=== PATIENT | female | born 1975 | race Caucasian/White ===

== ENCOUNTER 2017-12-08 11:58 | Day surgery (SDC) | payer OTHER ==
[~2017-12-08] VITALS: Ht 157.5 cm; Wt 116.6 kg
[2017-12-08] MEDS ORDERED: ATEN50 PO (12:42)
[2017-12-08] MEDS ORDERED: MELA3 PO (12:42)
[2017-12-08] MEDS ORDERED: IBUP400 PO (12:43)
== END 2017-12-08 17:51 | disposition home or self-care (01) ==
LOC: ORSCSDS 11:58
PROVIDERS: Obstetrics & Gynecology
PROC: 0UT74ZZ Resection of Bilateral Fallopian Tubes, Percutaneous Endoscopic Approach (ICD-10-PCS; principal; 2017-12-08 13:15)
PROC: 0UDB8ZZ Extraction of Endometrium, Via Natural or Artificial Opening Endoscopic (ICD-10-PCS; principal; 2017-12-08 13:15)
PROC: 0U5B8ZZ Destruction of Endometrium, Via Natural or Artificial Opening Endoscopic (ICD-10-PCS; principal; 2017-12-08 13:15)
DX: N92.1 Excessive and frequent menstruation with irregular cycle (principal); Z30.2 Encounter for sterilization; D64.9 Anemia, unspecified; N94.6 Dysmenorrhea, unspecified; I10 Essential (primary) hypertension; E66.01 Morbid (severe) obesity due to excess calories; Z68.42 Body mass index [BMI] 45.0-49.9, adult
CPT/HCPCS: 88302; 88305; J0171; J0690; J1100; J1885; J2250; J2405; J2710; J2765; J3010; J7120

== ENCOUNTER → 2018-01-08 | Outpatient (CLI) | payer OTHER ==
[~2018-01-08] MED LIST: AMOCLA500 PO; ATEN50 PO; BENZ100A PO; IBUP400 PO; MELA3 PO; Norco 10-325 T1 EACH PO; Zofran Odt4 MG SL
[2018-01-08 14:54] LABS: BASOPHILS ABSOLUTE AUTO 0.05 K/mm3 (0.00-0.23); BASOPHILS PERCENT AUTO 0 % (0-2); EOSINOPHILS ABSOLUTE AUTO 0.01 K/mm3 (0.00-0.68); EOSINOPHILS PERCENT AUTO 0 % (0-6); Hematocrit 35.8 % (33.0-51.0); Hemoglobin 11.5 g/dL (11.5-16.0); IMMATURE GRAN ABSOLUTE AUTO 0.08 K/mm3 (0.00-0.10); IMMATURE GRAN PERCENT AUTO 1 % (0-1); LYMPHOCYTES ABSOLUTE AUTO 1.64 K/mm3 (0.84-5.20); LYMPHOCYTES PERCENT AUTO 10 % (21-46); MONOCYTES ABSOLUTE AUTO 0.51 K/mm3 (0.16-1.47); MONOCYTES PERCENT AUTO 3 % (4-13); Mean Corpuscular HGB 25.6 pg (26.0-34.0); Mean Corpuscular HGB Conc 32.1 g/dL (31.5-36.5); Mean Corpuscular Volume 80 fL (80-100); Mean Platelet Volume 9.5 fL (9.1-12.4); NEUTROPHILS ABSOLUTE AUTO 14.44 K/mm3 (1.96-9.15); NEUTROPHILS PERCENT AUTO 86 % (41-73); Platelet Count 386 K/mm3 (150-400); RDW Coefficient Variation 15.9 % (11.7-14.2); RDW Standard Deviation 45.5 fL (35.1-46.3); Red Blood Cell Count 4.49 M/mm3 (3.80-5.20); White Blood Cell Count 16.73 K/mm3 (4.00-11.30)
[2018-01-08 15:06] LABS: Alanine Aminotransfer (ALT/SGP 24 U/L (12-78); Albumin, Blood 3.3 g/dL (3.4-5.0); Albumin/Globulin Ratio 0.7 (0.8-1.8); Alk Phos 66 U/L (40-126); Anion Gap 10 mmol/L (6-16); Aspartate Aminotrans (AST/SGOT 15 U/L (12-37); Bilirubin, Total 0.2 mg/dL (0.1-1.0); Blood Urea Nitrogen 15 mg/dL (8-24); Bun/Creatinine Ratio 17.9 (12.0-20.0); CO2, Blood 25 mmol/L (21-32); Calcium, Blood 8.8 mg/dL (8.5-10.1); Chloride, Blood 102 mmol/L (98-108); Creatinine, Blood 0.84 mg/dL (0.40-1.00); Globulin, Blood 4.6 g/dL (2.2-4.0); Glomerular Filtration Rate >60 (60-); Glucose, Blood 141 mg/dL (70-99); Sodium, Blood 137 mmol/L (136-145); Total Protein, Blood 7.9 g/dL (6.4-8.2)
== END ==
LOC: LAB SHORT 14:49 → LAB EV 14:49
PROVIDERS: Physician Assistant
DX: R10.13 Epigastric pain (principal)
CPT/HCPCS: 80053; 83690; 85025

== ENCOUNTER 2018-01-09 04:02 | Emergency (ER) | payer OTHER ==
[~2018-01-09] VITALS: Ht 157.5 cm; Wt 113.4 kg
[~2018-01-09 04:02] MED LIST changes: -AMOCLA500 PO; -BENZ100A PO; -Norco 10-325 T1 EACH PO; -Zofran Odt4 MG SL
[2018-01-09] MEDS ORDERED: AMOCLA500 PO (04:16)
[2018-01-09] MEDS ORDERED: BENZ100A PO (04:17)
[2018-01-09 04:20] LABS: BASOPHILS ABSOLUTE AUTO 0.03 K/mm3 (0.00-0.23); BASOPHILS PERCENT AUTO 0 % (0-2); EOSINOPHILS PERCENT AUTO 0 % (0-6); Hematocrit 34.5 % (33.0-51.0); Hemoglobin 10.9 g/dL (11.5-16.0); IMMATURE GRAN ABSOLUTE AUTO 0.08 K/mm3 (0.00-0.10); IMMATURE GRAN PERCENT AUTO 1 % (0-1); LYMPHOCYTES ABSOLUTE AUTO 2.26 K/mm3 (0.84-5.20); LYMPHOCYTES PERCENT AUTO 13 % (21-46); MONOCYTES ABSOLUTE AUTO 0.68 K/mm3 (0.16-1.47); MONOCYTES PERCENT AUTO 4 % (4-13); Mean Corpuscular HGB 25.4 pg (26.0-34.0); Mean Corpuscular HGB Conc 31.6 g/dL (31.5-36.5); Mean Corpuscular Volume 80 fL (80-100); Mean Platelet Volume 9.6 fL (9.1-12.4); NEUTROPHILS ABSOLUTE AUTO 14.11 K/mm3 (1.96-9.15); NEUTROPHILS PERCENT AUTO 82 % (41-73); Platelet Count 378 K/mm3 (150-400); RDW Coefficient Variation 15.8 % (11.7-14.2); RDW Standard Deviation 45.8 fL (35.1-46.3); Red Blood Cell Count 4.29 M/mm3 (3.80-5.20); White Blood Cell Count 17.16 K/mm3 (4.00-11.30)
[2018-01-09 04:33] LABS: Alanine Aminotransfer (ALT/SGP 19 U/L (12-78); Albumin/Globulin Ratio 0.7 (0.8-1.8); Alk Phos 60 U/L (50-136); Anion Gap 10 mmol/L (6-16); Aspartate Aminotrans (AST/SGOT 7 U/L (12-37); Bilirubin, Total 0.2 mg/dL (0.1-1.0); Blood Urea Nitrogen 14 mg/dL (8-24); Bun/Creatinine Ratio 22.3 (12.0-20.0); CO2, Blood 23 mmol/L (21-32); Calcium, Blood 8.1 mg/dL (8.5-10.1); Chloride, Blood 104 mmol/L (98-108); Creatinine, Blood 0.63 mg/dL (0.40-1.00); Globulin, Blood 4.6 g/dL (2.2-4.0); Glomerular Filtration Rate >60 (60-); Glucose, Blood 120 mg/dL (70-99); Potassium, Blood 3.4 mmol/L (3.5-5.5); Sodium, Blood 137 mmol/L (136-145); Total Protein, Blood 7.6 g/dL (6.4-8.2)
[2018-01-09 05:14] LABS: Source, Urine Clean Catch
[2018-01-09 05:17] LABS: Bilirubin, Urine Neg (Neg); Blood, Urine 4+ (Neg); Glucose Qualitative, Urine Neg (Neg); Ketones, Urine 1+ (Neg); Leukocyte Esterase, Urine Neg (Neg); Nitrite, Urine Neg (Neg); Protein, Urine 1+ (Neg); Urobilinogen, Urine NORM (Normal); pH, Urine 6.5 (5.0-8.0)
[2018-01-09 05:26] LABS: Appearance, Urine Clear (Clear); Color, Urine Yellow (P-Yellow)
[2018-01-09 05:28] LABS: Bacteria Not Seen /hpf; Squamous Epithelial Cells Few /hpf (Few); White Blood Cells, Urine Not Seen /hpf (0-5)
[2018-01-09] MEDS ORDERED: Norco 10-325 T1 EACH PO (05:38)
[2018-01-09] MEDS ORDERED: Zofran Odt4 MG SL (05:38)
== END 2018-01-09 05:58 | disposition home or self-care (01) ==
LOC: ER 04:02
PROVIDERS: Emergency Medicine
DX: R11.2 Nausea with vomiting, unspecified (principal); R10.13 Epigastric pain; I10 Essential (primary) hypertension; Z79.899 Other long term (current) drug therapy; Z98.51 Tubal ligation status
CPT/HCPCS: 76705; 80053; 81001; 83690; 85025; 96361; 96374; 96375; 99284; J1170; J2405; J7030

== ENCOUNTER → 2019-03-26 | Outpatient (CLI) | payer OTHER ==
[~2019-03-26] MED LIST changes: +AMOCLA500 PO; +BENZ100A PO; +Norco 10-325 T1 EACH PO; +Zofran Odt4 MG SL
[2019-03-26 13:13] LABS: Alanine Aminotransfer (ALT/SGP 39 U/L (12-78); Albumin, Blood 3.5 g/dL (3.4-5.0); Albumin/Globulin Ratio 0.8 (0.8-1.8); Alk Phos 59 U/L (50-136); Anion Gap 7 mmol/L (6-16); Aspartate Aminotrans (AST/SGOT 22 U/L (12-37); Bilirubin, Total 0.3 mg/dL (0.1-1.0); Blood Urea Nitrogen 15 mg/dL (8-24); Bun/Creatinine Ratio 20.7 (12.0-20.0); CHOL/HDL RATIO 3.8; CO2, Blood 26 mmol/L (21-32); Calcium, Blood 8.7 mg/dL (8.5-10.1); Chloride, Blood 104 mmol/L (98-108); Cholesterol 176 mg/dL (50-200); Creatinine, Blood 0.72 mg/dL (0.40-1.00); Globulin, Blood 4.3 g/dL (2.2-4.0); Glomerular Filtration Rate >60 (60-); Glucose, Blood 119 mg/dL (70-99); HDL Cholesterol 46 mg/dL (>39); LDL/HDL RATIO 2.2; Low Density Lipoprotein Chol 103 mg/dL (0-110); Potassium, Blood 4.2 mmol/L (3.5-5.5); Sodium, Blood 137 mmol/L (136-145); Total Protein, Blood 7.8 g/dL (6.4-8.2); Triglycerides 137 mg/dL (30-160); Very Low Density Lipoprot Chol 27 mg/dL (6-32)
[2019-03-26 15:12] LABS: BASOPHILS ABSOLUTE AUTO 0.06 K/mm3 (0.00-0.23); BASOPHILS PERCENT AUTO 1 % (0-2); EOSINOPHILS ABSOLUTE AUTO 0.05 K/mm3 (0.00-0.68); EOSINOPHILS PERCENT AUTO 1 % (0-6); Hematocrit 38.6 % (33.0-51.0); Hemoglobin 12.3 g/dL (11.5-16.0); IMMATURE GRAN ABSOLUTE AUTO 0.04 K/mm3 (0.00-0.10); IMMATURE GRAN PERCENT AUTO 0 % (0-1); LYMPHOCYTES ABSOLUTE AUTO 2.52 K/mm3 (0.84-5.20); LYMPHOCYTES PERCENT AUTO 25 % (21-46); MONOCYTES ABSOLUTE AUTO 0.63 K/mm3 (0.16-1.47); MONOCYTES PERCENT AUTO 6 % (4-13); Mean Corpuscular HGB 29.4 pg (26.0-34.0); Mean Corpuscular HGB Conc 31.9 g/dL (31.5-36.5); Mean Corpuscular Volume 92 fL (80-100); NEUTROPHILS ABSOLUTE AUTO 6.89 K/mm3 (1.96-9.15); NEUTROPHILS PERCENT AUTO 68 % (41-73); Platelet Count 365 K/mm3 (150-400); RDW Coefficient Variation 13.4 % (11.7-14.2); RDW Standard Deviation 45.6 fL (35.1-46.3); Red Blood Cell Count 4.19 M/mm3 (3.80-5.20); White Blood Cell Count 10.19 K/mm3 (4.00-11.30)
== END | disposition home or self-care (01) ==
LOC: LAB SHORT 12:23 → LAB 12:23
PROVIDERS: Physician Assistant
DX: I10 Essential (primary) hypertension (principal); R73.03 Prediabetes
CPT/HCPCS: 80053; 80061; 83036; 85025

== ENCOUNTER → 2020-09-29 | Outpatient (CLI) | payer OTHER ==
[2020-09-29 18:34] LABS: BASOPHILS ABSOLUTE AUTO 0.05 K/mm3 (0.00-0.23); BASOPHILS PERCENT AUTO 0 % (0-2); EOSINOPHILS ABSOLUTE AUTO 0.05 K/mm3 (0.00-0.68); EOSINOPHILS PERCENT AUTO 0 % (0-6); Hematocrit 39.4 % (33.0-51.0); Hemoglobin 13.4 g/dL (11.5-16.0); IMMATURE GRAN ABSOLUTE AUTO 0.03 K/mm3 (0.00-0.10); IMMATURE GRAN PERCENT AUTO 0 % (0-1); LYMPHOCYTES ABSOLUTE AUTO 3.54 K/mm3 (0.84-5.20); LYMPHOCYTES PERCENT AUTO 28 % (21-46); MONOCYTES ABSOLUTE AUTO 0.83 K/mm3 (0.16-1.47); MONOCYTES PERCENT AUTO 7 % (4-13); Mean Corpuscular HGB 30.4 pg (26.0-34.0); Mean Corpuscular Volume 89 fL (80-100); Mean Platelet Volume 9.9 fL (9.1-12.4); NEUTROPHILS ABSOLUTE AUTO 7.95 K/mm3 (1.96-9.15); NEUTROPHILS PERCENT AUTO 64 % (41-73); Platelet Count 356 K/mm3 (150-400); RDW Coefficient Variation 12.5 % (11.7-14.2); RDW Standard Deviation 41.1 fL (35.1-46.3); Red Blood Cell Count 4.41 M/mm3 (3.80-5.20); White Blood Cell Count 12.45 K/mm3 (4.00-11.30)
[2020-09-29 18:50] LABS: Alanine Aminotransfer (ALT/SGP 39 U/L (12-78); Albumin, Blood 3.6 g/dL (3.4-5.0); Albumin/Globulin Ratio 0.8 (0.8-1.8); Alk Phos 60 U/L (40-126); Anion Gap 9 mmol/L (6-16); Aspartate Aminotrans (AST/SGOT 19 U/L (12-37); Bilirubin, Total 0.2 mg/dL (0.1-1.0); Blood Urea Nitrogen 16 mg/dL (8-24); Bun/Creatinine Ratio 18.2 (12.0-20.0); CO2, Blood 27 mmol/L (21-32); Calcium, Blood 8.7 mg/dL (8.5-10.1); Chloride, Blood 101 mmol/L (98-108); Creatinine, Blood 0.88 mg/dL (0.40-1.00); Globulin, Blood 4.8 g/dL (2.2-4.0); Glomerular Filtration Rate >60 (60-); Glucose, Blood 96 mg/dL (70-99); Potassium, Blood 3.9 mmol/L (3.5-5.5); Sodium, Blood 137 mmol/L (136-145); Thyroid Stimulating Hormone 2.236 uIU/mL (0.360-4.800); Total Protein, Blood 8.4 g/dL (6.4-8.2)
== END | disposition home or self-care (01) ==
LOC: LAB SHORT 18:23 → LAB EV 18:23
PROVIDERS: Physician Assistant
DX: R53.83 Other fatigue (principal)
CPT/HCPCS: 80053; 82607; 83690; 83735; 84443; 85025

== ENCOUNTER → 2020-09-30 | Outpatient (CLI) | payer OTHER | END | disposition home or self-care (01) | LOC: LAB 14:23 → LAB SHORT 14:23 | DX: R10.2 Pelvic and perineal pain (principal) | CPT/HCPCS: 87070; 87205; 87491; 87591 ==

== ENCOUNTER → 2020-11-10 | Outpatient (CLI) | payer OTHER ==
[~2020-11-10] MED LIST changes: +ACET325 PO; +ERGO400 PO; +IBUP200 PO; +METF500 PO; +OXAYDO5 M1 PO; +OXYC5 PO; +PROG100 PO; +ROSU10TA PO
== END | disposition home or self-care (01) ==
LOC: PLD 08:06 → LAB SHORT 08:06
DX: R93.89 Abnormal findings on diagnostic imaging of other specified body structures (principal)
CPT/HCPCS: 88305

== ENCOUNTER 2021-01-29 13:47 | Emergency (ER) | payer OTHER ==
[~2021-01-29] VITALS: Ht 157.5 cm; Wt 115.7 kg
[~2021-01-29 13:47] MED LIST changes: -ACET325 PO; -ERGO400 PO; -IBUP200 PO; -METF500 PO; -OXAYDO5 M1 PO; -OXYC5 PO; -PROG100 PO; -ROSU10TA PO
[2021-01-29 14:32] LABS: BASOPHILS ABSOLUTE AUTO 0.06 K/mm3 (0.00-0.23); BASOPHILS PERCENT AUTO 1 % (0-2); EOSINOPHILS ABSOLUTE AUTO 0.09 K/mm3 (0.00-0.68); EOSINOPHILS PERCENT AUTO 1 % (0-6); Hematocrit 38.7 % (33.0-51.0); Hemoglobin 12.9 g/dL (11.5-16.0); IMMATURE GRAN ABSOLUTE AUTO 0.03 K/mm3 (0.00-0.10); IMMATURE GRAN PERCENT AUTO 0 % (0-1); LYMPHOCYTES ABSOLUTE AUTO 2.66 K/mm3 (0.84-5.20); LYMPHOCYTES PERCENT AUTO 22 % (21-46); MONOCYTES ABSOLUTE AUTO 0.81 K/mm3 (0.16-1.47); MONOCYTES PERCENT AUTO 7 % (4-13); Mean Corpuscular HGB Conc 33.3 g/dL (31.5-36.5); Mean Corpuscular Volume 90 fL (80-100); Mean Platelet Volume 9.8 fL (9.1-12.4); NEUTROPHILS ABSOLUTE AUTO 8.56 K/mm3 (1.96-9.15); NEUTROPHILS PERCENT AUTO 70 % (41-73); Platelet Count 356 K/mm3 (150-400); RDW Coefficient Variation 12.4 % (11.7-14.2); RDW Standard Deviation 40.7 fL (35.1-46.3); White Blood Cell Count 12.21 K/mm3 (4.00-11.30)
[2021-01-29 14:58] LABS: Alanine Aminotransfer (ALT/SGP 28 U/L (12-78); Albumin, Blood 3.4 g/dL (3.4-5.0); Albumin/Globulin Ratio 0.7 (0.8-1.8); Alk Phos 57 U/L (50-136); Anion Gap 5 mmol/L (6-16); Aspartate Aminotrans (AST/SGOT 9 U/L (12-37); Beta HCG, Quantitative, Serum <1 mIU/mL (0-3); Bilirubin, Total 0.4 mg/dL (0.1-1.0); Blood Urea Nitrogen 19 mg/dL (8-24); Bun/Creatinine Ratio 25.9 (12.0-20.0); CO2, Blood 27 mmol/L (21-32); Chloride, Blood 104 mmol/L (98-108); Creatinine, Blood 0.73 mg/dL (0.40-1.00); Globulin, Blood 4.7 g/dL (2.2-4.0); Glomerular Filtration Rate >60 (60-); Glucose, Blood 112 mg/dL (70-99); Sodium, Blood 136 mmol/L (136-145); Total Protein, Blood 8.1 g/dL (6.4-8.2)
[2021-01-29] MEDS ORDERED: METF500 PO (15:19)
[2021-01-29 18:16] LABS: Source, Urine Clean Catch
[2021-01-29] MEDS ORDERED: OXAYDO5 M1 PO (18:16)
[2021-01-29 18:28] LABS: Bilirubin, Urine Neg (Neg); Blood, Urine 5+ (Neg); Glucose Qualitative, Urine Neg (Neg); Ketones, Urine Neg (Neg); Leukocyte Esterase, Urine Neg (Neg); Nitrite, Urine Neg (Neg); Protein, Urine Neg (Neg); Urobilinogen, Urine NORM (Normal)
[2021-01-29 18:35] LABS: Appearance, Urine Clear (Clear); Color, Urine Yellow (P-Yellow)
[2021-01-29 18:40] LABS: Bacteria Few /hpf; Squamous Epithelial Cells Rare /hpf (Few); White Blood Cells, Urine 0-2 /hpf (0-5)
[2021-04-22] MEDS ORDERED: ROSU10TA PO (11:50)
[2021-04-22] MEDS ORDERED: PROG100 PO (11:51)
[2021-04-22] MEDS ORDERED: ERGO400 PO (11:51)
== END 2021-01-29 18:24 | disposition home or self-care (01) ==
LOC: ER 13:47
PROVIDERS: Physician Assistant
DX: N83.201 Unspecified ovarian cyst, right side (principal); N83.202 Unspecified ovarian cyst, left side
CPT/HCPCS: 36415; 76830; 76856; 80053; 81001; 84702; 85025; 87086; 96374; 96375; 99284-25; J1170; J2405

== ENCOUNTER 2021-04-26 05:50 | Day surgery (SDC) | payer OTHER ==
[~2021-04-26] VITALS: Ht 157.5 cm; Wt 116.0 kg
[~2021-04-26 05:50] MED LIST changes: +ERGO400 PO; +METF500 PO; +OXAYDO5 M1 PO; +PROG100 PO; +ROSU10TA PO
--- NOTE | 2021-04-26 07:22 | NUR ---
Ambulatory in Day Surgery. History, Chart, Medications and Allergies reviewed before start of procedure. Lungs clear T/O to Auscultation. Patient confirms NPO status and agrees with scheduled surgery. Pre-Op teaching done. Pt verbalizes understanding. Patient States Post-Procedure ride home has been arranged. PT PLEASANT. 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
--- NOTE | 2021-04-26 08:37 | NUR ---
04/26/21 0837 Carly Min PLACED INTRAOPERATIVELY BY DR. FAIRCHILD
[2021-04-26] MEDS ORDERED: ACET325 PO (15:37)
[2021-04-26] MEDS ORDERED: OXYC5 PO (15:37)
[2021-04-26] MEDS ORDERED: IBUP200 PO (15:38)
--- NOTE | 2021-04-26 16:45 | NUR ---
DISCHARGE PT IS DOING WELL. EATING, DRINKING, VOIDING EASILY. SMALL AMOUNT VAG BLEEDING. LAP SITES HAVE NO DRAINAGE & WNL. PAIN TOLERABLE. SCRIPT GIVEN. ESCORTED OUT VIA W/C.
== END 2021-04-26 17:06 | disposition home or self-care (01) ==
LOC: ORSCMMR 05:50 → ORD 07:30 → ORSCMMR 11:12 → SURS 11:12 → ORSCMMR 17:06 → SURS 17:06
PROVIDERS: Obstetrics & Gynecology
PROC: 0UT9FZZ Resection of Uterus, Via Natural or Artificial Opening With Percutaneous Endoscopic Assistance (ICD-10-PCS; principal; 2021-04-26 07:30)
DX: R10.2 Pelvic and perineal pain (principal); D25.9 Leiomyoma of uterus, unspecified; N80.0 Endometriosis of uterus; I10 Essential (primary) hypertension; E11.9 Type 2 diabetes mellitus without complications; K21.9 Gastro-esophageal reflux disease without esophagitis; E66.01 Morbid (severe) obesity due to excess calories; Z68.42 Body mass index [BMI] 45.0-49.9, adult; Z79.84 Long term (current) use of oral hypoglycemic drugs; Z79.899 Other long term (current) drug therapy
CPT/HCPCS: 36415; 82947; 86850; 86900; 86901; 88307; A9270; J0171; J0690; J1100; J1885; J2270; J2370; J2405; J2704; J3010; J7120

== ENCOUNTER 2023-07-19 08:00 | Day surgery (SDC) | payer OTHER ==
[~2023-07-19] VITALS: Ht 157.5 cm; Wt 116.0 kg
[~2023-07-19 08:00] MED LIST changes: +ACET325 PO; +BUPROPION XL150 M1 PO; +IBUP200 PO; +OXYC5 PO; +VITAMIN B-122000 MC1 PO
[2023-07-19 09:00] VITALS: BP 124/71
--- NOTE | 2023-07-19 10:10 | NUR ---
07/19/23 1010 Isidoro Monk MONITOR INTACT WITH CONTINUOUS PULSE OXIMETRY, CONTINUOUS END TITAL CO2, AND INTERMITTENT BLOOD PRESSURE.AND EKG ANESTHESIA PROVIDED BY DR. ALVA
[2023-07-19 10:37] VITALS: BP 105/63
--- NOTE | 2023-07-19 10:41 | NUR ---
PT ANOX3, MOVING IN BED WITHOUT ASSISTANCE, ASKING FOR WATER. DENIES PAIN.
[2023-07-19 11:02] VITALS: BP 106/70
--- NOTE | 2023-07-19 11:02 | NUR ---
Discharge instructions reviewed with patient. Patient verbalizes understanding. Copy given to patient to take home. TOLERATING PO FLUIDS WELL. Patient up to Ambulate independently. Gait steady. Discharged via wheelchair to private car for ride home.
== END 2023-07-19 22:44 | disposition home or self-care (01) ==
LOC: ORSCMMR 08:00 → ORD 09:30 → ORSCMMR 22:44
PROVIDERS: Internal Medicine Gastroenterology
PROC: 0DBK8ZX Excision of Ascending Colon, Via Natural or Artificial Opening Endoscopic, Diagnostic (ICD-10-PCS; principal; 2023-07-19 09:30)
PROC: 0DBL8ZX Excision of Transverse Colon, Via Natural or Artificial Opening Endoscopic, Diagnostic (ICD-10-PCS; principal; 2023-07-19 09:30)
PROC: 0DBN8ZX Excision of Sigmoid Colon, Via Natural or Artificial Opening Endoscopic, Diagnostic (ICD-10-PCS; principal; 2023-07-19 09:30)
DX: Z12.11 Encounter for screening for malignant neoplasm of colon (principal); D12.2 Benign neoplasm of ascending colon; D12.3 Benign neoplasm of transverse colon; K63.5 Polyp of colon; E66.01 Morbid (severe) obesity due to excess calories; Z68.42 Body mass index [BMI] 45.0-49.9, adult; R73.03 Prediabetes; I10 Essential (primary) hypertension; E78.00 Pure hypercholesterolemia, unspecified; F32.A Depression, unspecified; Z79.84 Long term (current) use of oral hypoglycemic drugs; Z79.899 Other long term (current) drug therapy
CPT/HCPCS: 82947; 88305; J2001; J2704; J7120

== ENCOUNTER → 2024-06-12 | Outpatient (CLI) | payer OTHER ==
[2024-06-12 19:26] LABS: Alanine Aminotransfer (ALT/SGP 41 U/L (12-78); Albumin, Blood 3.5 g/dL (3.4-5.0); Albumin/Globulin Ratio 0.8 (0.8-1.8); Alk Phos 70 U/L (50-136); Anion Gap 10 mmol/L (3-11); Aspartate Aminotrans (AST/SGOT 22 U/L (12-37); Bilirubin, Total 0.2 mg/dL (0.1-1.0); Blood Urea Nitrogen 15 mg/dL (8-24); Bun/Creatinine Ratio 23.4 (12.0-20.0); CHOL/HDL RATIO 2.9; CO2, Blood 27 mmol/L (21-32); Calcium, Blood 8.5 mg/dL (8.5-10.1); Chloride, Blood 105 mmol/L (98-108); Cholesterol 147 mg/dL (50-200); Creatinine, Blood 0.64 mg/dL (0.40-1.00); Globulin, Blood 4.4 g/dL (2.2-4.0); Glomerular Filtration Rate 108 (60-); Glucose, Blood 110 mg/dL (70-99); HDL Cholesterol 50 mg/dL (>39); Low Density Lipoprotein Chol 50 mg/dL (0-110); Potassium, Blood 4.2 mmol/L (3.5-5.5); Sodium, Blood 138 mmol/L (136-145); Total Protein, Blood 7.9 g/dL (6.4-8.2); Triglycerides 237 mg/dL (30-160); Very Low Density Lipoprot Chol 47 mg/dL (6-32)
[2024-06-12 19:29] LABS: BASOPHILS ABSOLUTE AUTO 0.07 K/mm3 (0.00-0.23); BASOPHILS PERCENT AUTO 1 % (0-2); EOSINOPHILS ABSOLUTE AUTO 0.13 K/mm3 (0.00-0.68); EOSINOPHILS PERCENT AUTO 1 % (0-6); Hematocrit 37.3 % (33.0-51.0); Hemoglobin 12.5 g/dL (11.5-16.0); IMMATURE GRAN ABSOLUTE AUTO 0.03 K/mm3 (0.00-0.10); IMMATURE GRAN PERCENT AUTO 0 % (0-1); LYMPHOCYTES ABSOLUTE AUTO 3.04 K/mm3 (0.84-5.20); LYMPHOCYTES PERCENT AUTO 29 % (21-46); MONOCYTES ABSOLUTE AUTO 0.74 K/mm3 (0.16-1.47); MONOCYTES PERCENT AUTO 7 % (4-13); Mean Corpuscular HGB 30.7 pg (26.0-34.0); Mean Corpuscular HGB Conc 33.5 g/dL (31.5-36.5); Mean Corpuscular Volume 92 fL (80-100); Mean Platelet Volume 10.8 fL (9.1-12.4); NEUTROPHILS PERCENT AUTO 62 % (41-73); Platelet Count 313 K/mm3 (150-400); RDW Coefficient Variation 12.6 % (11.7-14.2); RDW Standard Deviation 42.2 fL (35.1-46.3); Red Blood Cell Count 4.07 M/mm3 (3.80-5.20); White Blood Cell Count 10.41 K/mm3 (4.00-11.30)
== END ==
LOC: LAB 17:53 → LAB SHORT 17:53
PROVIDERS: Physician Assistant
DX: Z51.81 Encounter for therapeutic drug level monitoring (principal); Z79.899 Other long term (current) drug therapy
CPT/HCPCS: 80053; 80061; 82306; 83036; 84443; 85025

== ENCOUNTER → 2024-09-23 | Outpatient (CLI) | payer OTHER | END | disposition home or self-care (01) | LOC: LAB SHORT 03:05 → LAB 03:05 | DX: R73.03 Prediabetes (principal) | CPT/HCPCS: 83036 ==

== ENCOUNTER 2024-11-04 06:11 | Day surgery (SDC) | payer OTHER ==
[~2024-11-04] VITALS: Ht 157.5 cm; Wt 114.7 kg
[~2024-11-04 06:11] MED LIST changes: +Lidocaine 1%-Epineph 1:100000 20 ML MDV ONE; +NS 500 ML IV ONE; +Sodium Bicarb 8.4% 1 MEQ/ML 50 ML Vial ONE
[2024-11-04] MEDS ORDERED: TRAZ50 PO (06:30)
[2024-11-04] MEDS ORDERED: MELATONIN5 M1 PO (06:30)
[2024-11-04] MEDS ORDERED: ROSUVASTATIN CA20 MG PO (06:30)
[2024-11-04] MEDS ORDERED: TOPI15C (06:31)
[2024-11-04] MEDS ORDERED: CeFAZolin Sodium 2,000 MG VIAL ONE (06:35)
[2024-11-04] MEDS ORDERED: NS 50 ML IV ONE (06:35)
[2024-11-04] MEDS ORDERED: NS 500 ML IV ONE (06:40)
--- NOTE | 2024-11-04 07:11 | NUR ---
11/04/24 0711 Vidya Baker TIME OUT AT 0711, C
[2024-11-04] MEDS ORDERED: Midazolam HCl 1MG / ML 2ML Vial ONE (07:15)
[2024-11-04 07:46] VITALS: BP 109/61
--- NOTE | 2024-11-04 08:10 | NUR ---
11/04/24 0810 GUEVARA CARTER PT UP TO BR PRIOR TO DC
== END 2024-11-04 08:10 | disposition home or self-care (01) ==
LOC: ORSCSDS 06:11
PROVIDERS: Orthopaedic Surgery
PROC: 01N54ZZ Release Median Nerve, Percutaneous Endoscopic Approach (ICD-10-PCS; principal; 2024-11-04 07:30)
DX: G56.02 Carpal tunnel syndrome, left upper limb (principal); I10 Essential (primary) hypertension; K21.9 Gastro-esophageal reflux disease without esophagitis; F41.9 Anxiety disorder, unspecified; F32.A Depression, unspecified; E66.01 Morbid (severe) obesity due to excess calories; Z68.42 Body mass index [BMI] 45.0-49.9, adult; Z79.899 Other long term (current) drug therapy
CPT/HCPCS: 82947; J0690; J2250; J7040

== ENCOUNTER → 2025-02-04 | Outpatient (CLI) | payer OTHER ==
[~2025-02-04] MED LIST changes: -Lidocaine 1%-Epineph 1:100000 20 ML MDV ONE; +MELATONIN5 M1 PO; -NS 500 ML IV ONE; +ROSUVASTATIN CA20 MG PO; -Sodium Bicarb 8.4% 1 MEQ/ML 50 ML Vial ONE; +TOPI15C; +TRAZ50 PO
[2025-02-04 19:16] LABS: BASOPHILS ABSOLUTE AUTO 0.07 K/mm3 (0.00-0.23); BASOPHILS PERCENT AUTO 1 % (0-2); EOSINOPHILS ABSOLUTE AUTO 0.12 K/mm3 (0.00-0.68); EOSINOPHILS PERCENT AUTO 1 % (0-6); Hematocrit 37.7 % (33.0-51.0); Hemoglobin 12.8 g/dL (11.5-16.0); IMMATURE GRAN ABSOLUTE AUTO 0.04 K/mm3 (0.00-0.10); IMMATURE GRAN PERCENT AUTO 0 % (0-1); LYMPHOCYTES ABSOLUTE AUTO 3.29 K/mm3 (0.84-5.20); LYMPHOCYTES PERCENT AUTO 28 % (21-46); MONOCYTES ABSOLUTE AUTO 0.76 K/mm3 (0.16-1.47); MONOCYTES PERCENT AUTO 7 % (4-13); Mean Corpuscular Volume 91 fL (80-100); Mean Platelet Volume 11.2 fL (9.1-12.4); NEUTROPHILS PERCENT AUTO 63 % (41-73); Platelet Count 304 K/mm3 (150-400); RDW Coefficient Variation 12.8 % (11.7-14.2); RDW Standard Deviation 42.6 fL (35.1-46.3); Red Blood Cell Count 4.13 M/mm3 (3.80-5.20); White Blood Cell Count 11.68 K/mm3 (4.00-11.30)
[2025-02-04 20:02] LABS: Alanine Aminotransfer (ALT/SGP 30 U/L (12-78); Albumin, Blood 3.6 g/dL (3.4-5.0); Albumin/Globulin Ratio 0.9 (0.8-1.8); Alk Phos 65 U/L (50-136); Anion Gap 13 mmol/L (3-11); Aspartate Aminotrans (AST/SGOT 14 U/L (12-37); Bilirubin, Total 0.2 mg/dL (0.1-1.0); Blood Urea Nitrogen 25 mg/dL (8-24); Bun/Creatinine Ratio 32.2 (12.0-20.0); CO2, Blood 27 mmol/L (21-32); Calcium, Blood 9.7 mg/dL (8.5-10.1); Chloride, Blood 100 mmol/L (98-108); Cholesterol 175 mg/dL (50-200); Creatinine, Blood 0.78 mg/dL (0.40-1.00); Globulin, Blood 4.1 g/dL (2.2-4.0); Glomerular Filtration Rate 92 (60-); Glucose, Blood 120 mg/dL (70-99); HDL Cholesterol 58 mg/dL (>39); LDL/HDL RATIO 1.3; Low Density Lipoprotein Chol 73 mg/dL (0-110); Potassium, Blood 3.8 mmol/L (3.5-5.5); Sodium, Blood 136 mmol/L (136-145); Total Protein, Blood 7.7 g/dL (6.4-8.2); Triglycerides 219 mg/dL (30-160); Very Low Density Lipoprot Chol 43 mg/dL (6-32)
== END ==
LOC: LAB 18:00 → LAB SHORT 18:00
PROVIDERS: Physician Assistant
DX: Z51.81 Encounter for therapeutic drug level monitoring (principal); Z79.899 Other long term (current) drug therapy
CPT/HCPCS: 80053; 80061; 82306; 83036; 84443; 85025